=== PATIENT | male | born 1965 | race Two or more races ===

== ENCOUNTER 2018-09-03 17:31 | Emergency (ER) | payer OTHER ==
[~2018-09-03] VITALS: Ht 177.8 cm; Wt 99.8 kg
[2018-09-03] MEDS ORDERED: MEPERIDINE HCL (50 MG/ML) 1 ML VIAL IM ONE (21:30)
[2018-09-03] MEDS ORDERED: ONDANSETRON ODT 4 MG TAB PO ONE (21:30)
[2018-09-03] MEDS ORDERED: HYDROcodone-ACET 10/325MG TAB PO ONE (21:45)
[2018-09-03 22:05] VITALS: BP 104/74
== END 2018-09-03 23:28 | disposition home or self-care (01) ==
LOC: ER 17:36
DX: S43.102A Unspecified dislocation of left acromioclavicular joint, initial encounter (principal); V86.56XA Driver of dirt bike or motor/cross bike injured in nontraffic accident, initial encounter; Y93.89 Activity, other specified; Y99.8 Other external cause status; Y92.89 Other specified places as the place of occurrence of the external cause
CPT/HCPCS: 29105; 73030; 73200; 99284; J2175; Q0162